=== PATIENT | female | born 1960 | race Caucasian/White ===

== ENCOUNTER → 2024-04-29 08:45 | Outpatient (AMB) | payer BC, SELFPAY ==
--- NOTE | 2024-04-29 08:46 | A.OFFVIS_ITS ---
Vital Signs 04/29/24 08:46 Height 5 ft 2 in Weight 169 lb 8.568 oz BMI 31.0 BP 154/88 H Blood Pressure Location Rt brachial Position Sitting Pulse 84 Pulse Source Pulse Oximeter Pulse Oximetry (%) 98 Oxygen Delivery Method Room Air Intake Visit Reasons: T2DM/Left vm Intake Note: Patient present today for Type 2 Diabetes Mellitus Last Diabetic eye exam: 02/2024 Last Podiatry Visit: Doesn't have one Random Glucose: 179 mg/dl HgA1C: 7.9% Research Lab Assistant Required: No Accompanied by: Self / Same As Patient Allergies No Known Allergies Allergy (Verified 04/29/24 08:51) Medication List - Last Reconciled 04/29/24 by Mervat Chiu PA-C hydrochlorothiazide 25 mg PO DAILY irbesartan 150 mg PO DAILY metformin 1,000 mg PO DAILY rosuvastatin 10 mg PO DAILY semaglutide (Ozempic) 1 mg subcut QWEEK HPI HPI T2DM/Left vm: Details: Patient is a 64-year-old female with a significant past medical history of hypertension, hyperlipidemia and type 2 diabetes presenting today for an initial consult regarding diabetes. Endo: She was diagnosed with diabetes around 2019. Her last A1c was 8.3 at her primary care's office in 7.9 today. She is currently on metformin 1000 mg twice a day and Ozempic 1 mg weekly. -She states that she was recently increased on the metformin and is tolerating this okay. She struggles tolerating the Ozempic. It causes a lot of nausea and upset stomach. She could not tolerate a higher dose of this. She does not even like the idea of taking this. She has been on it for about 2 years and has not noticed any weight loss with this drug. She states that she tried a different drug as well but it made her feel sick and she can not recall the name. This was prior to starting the Ozempic. She says that this is her 1st appointment in endocrinology. She has never had any diabetic Education. She does not check her blood sugars are have any testing supplies at home. She has a family history of type 1 and type 2 diabetes. She states that she is very active and does not know why she has a problem with diabetes. She thinks that she eats a lot of the right foods but does eat a lot of carbohydrates. States that she could do better. CV: Blood pressure today in the office is 154/88. States blood pressure is little elevated today because she is stressed coming here. She is currently on hydrochlorothiazide 25 mg daily, irbesartan 150 mg daily. Cholesterol is controlled with Crestor 10 mg nightly. [facility] Family History (Updated 04/29/24 @ 08:54 by JACOBO Stewart) Mother Diabetes Father Diabetes Bladder cancer Social History Alcohol intake: current Alcohol intake frequency: holidays/special occasions only Patient Tobacco Use Status: Never used Tobacco Physical Exam Vital Signs: Last Vital Signs Pulse 84 04/29/24 08:46 BP 154/88 H 04/29/24 08:46 Pulse Ox 98 04/29/24 08:46 Oxygen Delivery Method Room Air 04/29/24 08:46 BMI result Body Mass Index 31.0 Const Orientation/consciousness: patient oriented x3 Neck Neck: Yes no lymphadenopathy Thyroid: Thyroid normal Carotids: no bruits Resp Auscultation: clear to auscultation bilaterally Cardio Rate: regular rate Rhythm: regular rhythm Heart sounds: S1 normal heart sound present and S2 normal heart sound present Peripheral pulses: dorsalis pedis present Neuro General: patient oriented x3, gait normal and no focal motor deficits Extrem Other: Monofilament sensation intact bilaterally. Vibratory sensation intact bilaterally. Skin intact. General: Yes normal to inspection Results AMB Hemoglobin A1c AMB Hemoglobin A1c 7.9 % Last Edit by JACOBO Stewart on 04/29/24 10:07 Results Reviewed Results Reviewed: Laboratory Last Values Glucose (Clinic) 179 mg/dL (60-115) H 04/29/24 08:56 A1c today is 7.9. Assessment & Plan Assessment & Plan (1) Uncontrolled type 2 diabetes mellitus with hyperglycemia: Code(s): E11.65 - Type 2 diabetes mellitus with hyperglycemia Category: Medical Plan: 75 minutes was spent in [id number] time today discussing the pathophysiology of diabetes, differences between type 1 and type 2 diabetes, complications associated with diabetes including blindness, heart disease, kidney disease, increased risk of infection, amputations etc.. We also reviewed signs and symptoms of hyper and hypoglycemia that would require emergent medical treatment. Reviewed rule of 15 of how to treat low blood sugars. We will stop the Ozempic and switch to Mounjaro as she does not tolerate Ozempic. Possibly tried Trulicity in the past with similar symptoms. We reviewed risks and benefits and adverse effects of the Mounjaro including increased risk of nausea, vomiting pancreatitis etc.. Continue the increased dosage of the metformin as she is tolerating this. We reviewed diet at length and increasing protein and exercise. I did provide her with a freestyle Shankar 3 sensor and applied it to her arm today. Demonstrated how this works. Download of the stephy for her on her phone and paired it for her. She would like to see how food directly impact her and is willing to pay for this out of pocket. I did order this at [employer] for her. She will call me if any issues. One-month follow up. Sooner if needed. Labs prior. Patient understands and agrees with this plan. (2) HTN (hypertension): Code(s): I10 - Essential (primary) hypertension Category: Medical Plan: A little elevated above goal today. (3) Dyslipidemia: Code(s): E78.5 - Hyperlipidemia, unspecified Category: Medical Plan: She states that it is well-controlled. Continue current regimen. Orders: Orders Islet Cell Antibody Scrn/Titer Today E11.65 - Type 2 diabetes mellitus with hyperglycemia C Peptide Today E11.65 - Type 2 diabetes mellitus with hyperglycemia Glutamic acid decarboxylase Ab Today E11.65 - Type 2 diabetes mellitus with hyperglycemia AMB Hemoglobin A1c Today E11.65 - Type 2 diabetes mellitus with hyperglycemia, Z13.9 - Encounter for screening, unspecified Medications: New blood-glucose meter (FreeStyle Lite Meter kit) Use daily As directed to check blood sugars 1 ea 0RF E11.65 - Type 2 diabetes mellitus with hyperglycemia blood-glucose sensor (FreeStyle Shankar 3 Plus Sensor device) Use daily As directed to monitor glucose 2 ea 5RF E11.65 - Type 2 diabetes mellitus with hyperglycemia tirzepatide (Mounjaro) for 4 weeks 2.5 mg (0.5 mL) subcut QWEEK 2 mL 2RF metformin 1,000 mg PO BID blood sugar diagnostic (FreeStyle Lite Strips) Use daily As directed to check blood glucose 100 ea 3RF E11.9 - Type 2 diabetes mellitus without complications lancets (FreeStyle Lancets) use daily as directed to check blood glucose 100 ea 3RF E11.65 - Type 2 diabetes mellitus with hyperglycemia blood-glucose sensor (FreeStyle Shankar 3 Plus Sensor device) Use daily As directed to monitor glucose 2 ea 5RF E11.65 - Type 2 diabetes mellitus with hyperglycemia Coding Level of Care Code New Pt Level 5 (29011) Complex EM visit Add On G2211 Diagnoses Uncontrolled type 2 diabetes mellitus with hyperglycemia E11.65 HTN (hypertension) I10 Dyslipidemia E78.5
[2024-04-29 09:00] LABS: Glucose, Whole Blood 179 mg/dL (60-115)
--- OUTSIDE RECORDS SUMMARY | 2024-04-29 09:05 | XMS_ITS | Encounter Summary ---
Author Organization [facility] Address [address] [place] [id number] Care Team Providers Care Air Bag Stripper Name Role Phone Unavailable Primary Care Provider Unavailabl e Encounter Details Date Type Department Care Team (Latest Contact Info) Description 03/31/2020 Lab Requisition [facility] [address] [place] [address] [address] [place] [address] Felipe Scott PA-C [address] [place] [address] [phone] Encounter for laboratory testing for COVID-19 virus Social History Tobacco Use Types Packs/Day Years Used Date Smoking Tobacco: Never Assessed Sex and Gender Information Value Date Recorded Sex Assigned at Not on file Gender Identity Not on file Sexual Orientation Not on file documented as of this encounter Plan of Treatment Not on file documented as of this encounter Procedures Procedure Name Priority Date/Time Associated Diagnosis Comments COVID-19 (SARS-COV-2) - [facility] Routine 03/31/2020 4:12 PM EST Encounter for laboratory testing for COVID-19 virus [ICD-10-CM] documented in this encounter Results * COVID-19 (SARS-COV-2) (SEMA4) (03/31/2020 4:12 PM EST) COVID-19 RT-PCR NOT-DETEC AMBAR Not-Detec ambar 04/02/2020 5:31 PM EST [facility] Comment:Interpretation: The viral RNA was not detected, making the COVID-19 diagnosis less likely. Clinical correlation is highly recommended.Final report signed by Aleah Pierson, Ph.D., Laboratory DirectorTests performed at [facility] Nasopharyngeal swab / Unknown 03/31/2020 4:12 PM EST 03/31/2020 4:12 PM EST Narrative ERNA DELGADOMARLY - 04/02/2020 5:31 PM EST Performed by [facility], [facility] [address] [place] [address], CLIA# [id number] and [place] License# [id number] Felipe Scott PA-C MICROBIOLOGY - NERAL ORDERABLES ERNA GAYATRI Ari PALLAVI documented in this encounter Visit Diagnoses Diagnosis Encounter for laboratory testing for COVID-19 virus documented in this encounter
--- OUTSIDE RECORDS SUMMARY | 2024-04-29 09:05 | XMS_ITS | Clinical Summary ---
Author Organization [facility] Address [address] [place] [address] Care Team Providers Care Photographic Press Screwmaker Name Role Phone Unavailable Primary Care Provider Unavailabl e Social History Tobacco Use Types Packs/Day Years Used Date Smoking Tobacco: Never Assessed Sex and Gender Information Value Date Recorded Sex Assigned at Not on file Gender Identity Not on file Sexual Orientation Not on file Plan of Treatment Health Maintenance Due Date Last Done Comments Hepatitis C Virus Screening 1960 HIV Screening 1974 DTaP/Tdap/Td Vaccines (1 - Tdap) 02/01/1980 Pneumococcal Vaccines 50+ (1 of 1 - PCV) 2011 Zoster (Shingles) Vaccine (1 of 2) 2011 COVID-19 Vaccine ( - 2023-2 5 season) 2023 RSV Vaccine 60 years and old er and Patients (1 - 1-dose 75+ series) 02/01/2036 Hepatitis B Vaccines Aged Out No long er eligible based on patient's age to complete this topic Pneumococcal Vaccine: Pediat td (0-5 Years) and At-Risk Patients (6 to 49 Years) Aged Out No longer eligible b ased on patient's age to complete this topic
== END | disposition home or self-care (01) ==
PROVIDERS: PCP Internal Medicine; Visit Provider Physician Assistant

== ENCOUNTER → 2024-04-29 08:45 | Outpatient (BNVA) | payer BC, SELFPAY | PROVIDERS: PCP Internal Medicine; Visit Provider Physician Assistant | DX: E11.65 Type 2 diabetes mellitus with hyperglycemia (principal); I10 Essential (primary) hypertension; E78.5 Hyperlipidemia, unspecified | CPT/HCPCS: 82947; 83036 ==

== ENCOUNTER 2024-05-27 08:48 | Outpatient (AMB) | payer BC, SELFPAY ==
--- NOTE | 2024-05-27 08:55 | A.OFFVIS_ITS ---
Vital Signs 05/27/24 08:57 Height 5 ft 2 in Weight 159 lb 9.835 oz BMI 29.2 BP 126/86 Blood Pressure Location Rt brachial Position Sitting Pulse 88 Pulse Source Pulse Oximeter Pulse Oximetry (%) 99 Oxygen Delivery Method Room Air Intake Visit Reasons: T2DM Intake Note: Patient present today for Type 2 Diabetes Mellitus Last Diabetic eye exam: Within the year, around September or October 2023. Last Podiatry Visit: Does not see a Patient Accounts Coordinator Random Glucose: 121 mg/dl HgA1C: 7.9% 04/29/24 Charter [employer] Required: No Accompanied by: Self / Same As Patient Allergies No Known Allergies Allergy (Verified 05/27/24 08:59) Medication List - Last Reconciled 05/27/24 by Mervat Chiu PA-C blood sugar diagnostic (FreeStyle Lite Strips) Use daily As directed to check blood glucose blood-glucose meter (FreeStyle Lite Meter kit) Use daily As directed to check blood sugars blood-glucose sensor (FreeStyle Shankar 3 Plus Sensor device) Use daily As directed to monitor glucose hydrochlorothiazide 25 mg PO DAILY irbesartan 150 mg PO DAILY lancets (FreeStyle Lancets) use daily as directed to check blood glucose metformin 1,000 mg PO ONCE rosuvastatin 10 mg PO DAILY tirzepatide (Mounjaro) 2.5 mg (0.5 mL) subcut QWEEK HPI HPI T2DM: Details: Patient is a 64-year-old female with a significant past medical history of hypertension, hyperlipidemia and type 2 diabetes presenting today for a follow up regarding her diabetes. Endo: She was diagnosed with diabetes around 2019. Her last A1c was 8.3 at her primary care's office in 7.9 today. She is currently on metformin 1000 mg twice a day and Mounjaro 2.5 mg. At our last visit I discontinued the Ozempic due to GI upset. She states she actually has not started the Mounjaro and has continue the Ozempic but plans to start Mounjaro this weekend. Since starting the sensors she has lost 10 lb. She states that it is very encouraging seeing how her body reactive certain foods. Hypergylcemic 6% in range 94%. G mi 6.4% -She states that she was recently increased on the metformin and is tolerating this okay. -Ozempic causes GI upset, Trulicity causes GI upset. At our last visit I also sent her in testing supplies. She has been monitoring her blood sugars. She has a family history of type 1 and type 2 diabetes. CV: Blood pressure today in the office is 126/86. She is currently on hydrochlorothiazide 25 mg daily, irbesartan 150 mg daily. Cholesterol is controlled with Crestor 10 mg nightly. [facility] Surgical History (Updated 05/27/24 @ 08:59 by JACOBO Adler) No pertinent past surgical history Family History (Updated 04/29/24 @ 08:55 by JACOBO Stewart) Mother Diabetes Father Diabetes Bladder cancer Social History (Updated 04/29/24 @ 08:55 by JACOBO Stewart) Alcohol intake: current Alcohol intake frequency: holidays/special occasions only Patient Tobacco Use Status: Never used Tobacco Physical Exam Const Orientation/consciousness: patient oriented x3 HEENT Ears: hearing grossly normal bilaterally Neck Thyroid: Thyroid normal Lymphatic: no lymphadenopathy noted Resp Auscultation: clear to auscultation bilaterally Cardio Rate: regular rate Rhythm: regular rhythm Heart sounds: S1 normal heart sound present and S2 normal heart sound present Skin General skin exam: no rashes or lesions noted Neuro General: patient oriented x3, gait normal and no focal motor deficits Results Reviewed Results Reviewed: Laboratory Tests 04/29/24 04/29/24 08:56 10:06 Glucose (Clinic) 179 H Hgb A1c (Clinic) 7.9 H Assessment & Plan Assessment & Plan (1) Uncontrolled type 2 diabetes mellitus with hyperglycemia: Code(s): E11.65 - Type 2 diabetes mellitus with hyperglycemia Category: Medical Plan: start mounjaro reduce metformin to 1000 mg daily follow up in 3 months or sooner prn (2) HTN (hypertension): Code(s): I10 - Essential (primary) hypertension Category: Medical Plan: wnl continue current plan (3) Dyslipidemia: Code(s): E78.5 - Hyperlipidemia, unspecified Category: Medical Plan: Continue Crestor. States her last lipids were at goal. Coding Level of Care Code Est Pt Level 4 (60168) Complex EM visit Add On G2211 Diagnoses Uncontrolled type 2 diabetes mellitus with hyperglycemia E11.65 HTN (hypertension) I10 Dyslipidemia E78.5
[2024-05-27 08:57] VITALS: BP 126/86; PULSE 88; O2SAT 99; BMI 29.2
[2024-05-27 09:07] LABS: Glucose, Whole Blood 121 mg/dL (60-115)
--- OUTSIDE RECORDS SUMMARY | 2024-05-27 09:21 | XMS_ITS | Clinical Summary ---
Author Organization [facility] Address [address] [place] [address] Care Team Providers Care Wireless Engineer Name Role Phone Unavailable Primary Care Provider [...]
--- OUTSIDE RECORDS SUMMARY | 2024-05-27 09:22 | XMS_ITS | Encounter Summary ---
Author Organization [facility] Address [address] [place] [address] Care Team Providers Care Petroleum Engineer Name Role Phone Ysabel Thompson MD Primary Care Provider [phone] Encounter Details Date Type Department Care Team (Late st Contact Info) Description 05/03/2024 Telephone Gastroenterology - [address] [place] [id number] Dina Clements MD [address] [place], [place] [phone] Social History Tobacco Use Types Packs/Day Years Used Date Smoking Tobacco: Never Assessed Comments Unknown Sex and Gender Information Value Date Recorded Sex Assigned at Not on file Legal Sex Female 2:15 PM EST Gender Identity Not on file Sexual Orientation Not on file documented as of this encounter Progress Notes * Ellen Johns - 05/04/2024 10:03 AM EST UPON CHECKING, PT LAST COLON WAS 03/09/2025 5 YEAR RECALL, PT ISNT DUE UNTIL 03/10/2025. RECALL ADDED TO PT'S CHART. IF PT HAS HMO INSURANCE, HE WILL NEED INSURANCE REFERRAL. THIS WAS NOT SENT WITH HIS REFERRAL. * Joanne Weiss MA - 05/03/2024 2:08 PM EST PHONE POD: (IF PT CALLING IN) Blood thinners: n Diabetic meds? n Weight loss meds? n documented in this encounter Plan of Treatment Not on file documented as of this encounter Visit Diagnoses Not on filedocumented in this encounter Care Teams Petroleum Engineer Relationship Specialty Start Date End Date Ysabel Thompson MD [address] [place] [id number] PCP - General Internal Medicine 05/04/24 documented as of this encounter
--- OUTSIDE RECORDS SUMMARY | 2024-05-27 09:22 | XMS_ITS | Clinical Summary ---
Author Organization [facility] [address] [facility] Address [address] [place] [address] Phone Care Team Providers Care Careers Adviser Name Role Phone Femi Thompson MD Primary Care Provider [phone] Encounters Date Type Department Care Team Description 05/03/2024 Telephone Gastroenterology - [address] [address] Dina Clements MD from Last 3 Months Social History Tobacco Use Types Packs/Day Years Used Date Smoking Tobacco: Never Assessed Comments Unknown Sex and Gender Information Value Date Recorded Sex Assigned at Not on file Legal Sex Female 2:15 PM EST Gender Identity Not on file Sexual Orientation Not on file Plan of Treatment Health Maintenance Due Date Last Done Comments DTaP,Tdap,and Td Vaccines (1 - Tdap) 02/01/1980 Cervical Cancer Screening: P ap Smear 1982 Pneumococcal Vaccine: 50+ Years (1 of 1 - PCV) 2011 Zoster Vaccines (1 of 2) 2011 Colorectal Cancer Screening: Colonoscopy 02/19/2022 Depression Screening 02/19/2022 HIV Screening 02/19/2022 Hepatitis C Screening 02/19/2022 Social Influencers of Health Screening 02/19/2022 COVID-19 Vaccine ( - 2023-2 5 season) 2023 Influenza Vaccine (#1) 2023 Breast Cancer Screening 06/27/2024 06/28/19, 12/05/2019 RSV Immunization Patients 60 + Years Old (1 - 1-dose 75+ series) 02/01/2036 HIB Vaccines Aged Out No longer eligi ble based on patient's age to complete this topic HPV Vaccines Aged Out No longer eligi ble based on patient's age to complete this topic Hepatitis A Vaccines Aged Out No long er eligible based on patient's age to complete this topic Hepatitis B Vaccines Aged Out No long er eligible based on patient's age to complete this topic IPV Vaccines Aged Out No longer eligi ble based on patient's age to complete this topic MMR Vaccines Aged Out No longer eligi ble based on patient's age to complete this topic Meningococcal ACWY Vaccine Aged Out N o longer eligible based on patient's age to complete this topic Meningococcal B Vacine Aged Out No lo nger eligible based on patient's age to complete this topic Pneumococcal Vaccine: Pediatrics (0 to 5 Years) and At-Risk Patients (6 to 64 Years) Aged Out No longer eligible b ased on patient's age to complete this topic RSV Immunization Patients Under 20 months Aged Out No longer eligible b ased on patient's age to complete this topic Varicella Vaccines Aged Out No longer eligible based on patient's age to complete this topic Procedures Procedure Name Priority Date/Time Associated Diagnosis Comments [facility] SCREENING DIGITAL Routine 06/27/2022 9:37 AM EDT Encounter for screening mammogram for malignant neoplasm of breast from Last 3 Months or Most Recently Relevant to Health Maintenance Results * [facility] SCREENING DIGITAL (06/27/2022 9:37 AM EDT) Anatomical Region Laterality Modality Mammography 06/25/2022 9:35 AM EDT Narrative 06/27/2022 9:37 AM EDT [facility] Diagnostic Imaging Department [address] [place], [place] [id number] Patient: ??EB,JOSE F ?/Age/Sex: 1960 - 62 - F Unit#: ??[id number] ? Location/Status: ??SPDIMAM/REG CLI ? Mnemonic/Ordering Site: ??DIGSC/SPMAM Ordering Physician: ??FEMI THOMPSON MD [facility] Screening Digital - 06/25/22 - 957 HISTORY: The patient is a 62-year-old female presenting for routine screening mammography. ??The patient underwent stereotactic core biopsy of microcalcifications of the right breast on 03/20/2016, pathology benign. FINDINGS: ??CC and MLO views of both breasts were obtained using full field digital mammography in the [employer] 2000-D unit. Computer aided detection with the iCAD Second Look 7.2-H was employed. In addition, breast tomosynthesis in MLO projection was performed. The breasts are again seen to be largely fatty-replaced (the breasts are almost entirely fatty, category A density, as calculated by [employer] software), as also demonstrated on prior studies most recently 12/02/2019 and most remotely 03/07/2016. ??A tissue marker representing the site of the previous benign biopsy is again seen; the adjacent tissue asymmetry is less prominent than on prior studies. ??There is no suspicious cluster of microcalcifications, mass, or area of architectural distortion. There is no skin thickening or nipple retraction. IMPRESSION: No mammographic evidence of malignancy. A negative mammogram in the presence of a clinically suspicious palpable abnormality does not preclude the possibility of malignancy or alter the indications for biopsy. BIRADS Code Class 2: ??Benign Finding PQRI CPT II 3342F Code 25607, 04893 PQRI 225 CPT II 7025F Dictating Physician: ??NAOMI COX MD Electronically Signed by: ??NAOMI COX MD Dic Date/Time: ??06/27/22932 Sign date/Time: ??06/27/22936 Procedure Note Naomi Cox MD - 04/24/2023 [facility] Diagnostic Imaging Department [address] [place], [place] [id number] Patient: JOSE GUZMAN /Age/Sex: 1960 - 62 - F Unit#: [id number] Location/Status: SPDIMA/REG CLI Mnemonic/Ordering Site: [facility] Ordering Physician: FEMI THOMPSON MD [employer] Screening Digital - 06/25/22957 HISTORY: The patient is a 62-year-old female presenting for routinescreening mammography. The patient underwent stereotactic core biopsy of microcalcifications of the right breast on 03/20/2016, pathology benign. FINDINGS: CC and MLO views of both breasts were obtained using fullfield digital mammography in the [employer] 2000-D unit. Computer aideddetection with the iCAD Second Look 7.2-H was employed. In addition, breasttomosynthesis in MLO projection was performed. The breasts are again seen to be largely fatty-replaced (the breasts arealmost entirely fatty, category A density, as calculated by [employer]), as also demonstrated on prior studies most recently 12/02/2019 and mostremotely 03/07/2016. A tissue marker representing the site of the previous benignbiopsy is again seen; the adjacent tissue asymmetry is less prominent than onprior studies. There is no suspicious cluster of microcalcifications, mass, orarea of architectural distortion. There is no skin thickening or nippleretraction. IMPRESSION: No mammographic evidence of malignancy. A negative mammogram in the presence of a clinically suspicious palpable abnormality does not preclude the possibility of malignancy or alter the indications for biopsy. BIRADS Code Class 2: Benign Finding PQRI CPT II 3342F Code 29423, 17105 PQRI 225 CPT II 7025F Dictating Physician: NAOMI COX MD Electronically Signed by: NAOMI COX MD Dic Date/Time: 06/27/22932 Sign date/Time: 06/27/22936 Femi Thompson MD IMG BI PROCEDURES Final Result from Last 3 Months or Most Recently Relevant to Health Maintenance Insurance [facility] Care Teams Careers Adviser Relationship Specialty Start Date End Date Femi Thompson MD [address] [place] [id number] PCP - General Internal Medicine 05/04/24
--- OUTSIDE RECORDS SUMMARY | 2024-05-27 09:22 | XMS_ITS | Encounter Summary ---
Author Organization [facility] Address [address] [place] [id number] Care Team Providers Care Stave And Bolt Equalizer Name Role Phone Unavailable Primary Care Provider Unavailabl e Encounter Details Date Type Department Care Team (Latest Contact Info) Description 03/31/2020 Lab Requisition [facility] COVID Drive Through [address] [place] [address] [address] [place] [address] Felipe Scott PA-C [address] [place] [address] [id number] Encounter for laboratory testing for COVID-19 virus [...] Date/Time Associated Diagnosis Comments COVID-19 (SARS-COV-2) - [facility] Routine 03/31/2020 4:12 PM EST Encounter for laboratory testing for COVID-19 virus [ICD-10-CM] documented in this encounter Results * COVID-19 (SARS-COV-2) (SEMA4) (03/31/2020 4:12 PM EST) COVID-19 RT-PCR NOT-DETEC AMBAR Not-Detec ambar 04/02/2020 5:31 PM EST [facility] Comment:Interpretation: The viral RNA was not detected, making the COVID-19 diagnosis less likely. Clinical correlation is highly recommended.Final report signed by Aleah Pierson, Ph.D., Laboratory DirectorTests performed at [facility] Nasopharyngeal swab / Unknown 03/31/2020 4:12 PM EST 03/31/2020 4:12 PM EST Narrative ERNA DELGADOMARLY - 04/02/2020 5:31 PM EST Performed by [employer], [employer] [address] [place] [address], CLIA# [id number] and [place] License# [id number] Felipe Scott PA-C MICROBIOLOGY - NERAL ORDERABLES ERNA GAYATRI Ari PALLAVI documented in this encounter Visit Diagnoses Diagnosis Encounter for laboratory testing for COVID-19 virus documented in this encounter
== END 2024-05-27 09:32 | disposition home or self-care (01) ==
PROVIDERS: PCP Internal Medicine; Visit Provider Physician Assistant
DX: E11.65 Type 2 diabetes mellitus with hyperglycemia (principal); I10 Essential (primary) hypertension; E78.5 Hyperlipidemia, unspecified

== ENCOUNTER → 2024-05-27 08:48 | Outpatient (BNVA) | payer BC, SELFPAY | PROVIDERS: PCP Internal Medicine; Visit Provider Physician Assistant | DX: E11.65 Type 2 diabetes mellitus with hyperglycemia (principal); I10 Essential (primary) hypertension; E78.5 Hyperlipidemia, unspecified; Z79.84 Long term (current) use of oral hypoglycemic drugs; Z79.899 Other long term (current) drug therapy | CPT/HCPCS: 82947 ==

== ENCOUNTER 2024-09-02 08:45 | Outpatient (AMB) | payer BC, SELFPAY ==
[2024-09-02 08:47] VITALS: BP 120/80; PULSE 69; O2SAT 98; BMI 26.4
--- NOTE | 2024-09-02 08:47 | A.OFFVIS_ITS ---
Vital Signs 09/02/24 08:47 Height 5 ft 2 in Weight 144 lb 9.972 oz BMI 26.4 BP 120/80 Blood Pressure Location Rt brachial Position Sitting Pulse 69 Pulse Source Pulse Oximeter Pulse Oximetry (%) 98 Oxygen Delivery Method Room Air Intake Visit Reasons: T2DM Intake Note: Patient present today for Type 2 Diabetes Mellitus Last Diabetic eye exam: 01/2025 Last Podiatry Visit: Doesn't have one Random Glucose: 116 mg/dl HgA1C: 7.3% Line Service Technician Required: No Accompanied by: Self / Same As Patient Allergies No Known Allergies Allergy (Verified 09/02/24 09:10) Medication List - Last Reconciled 09/02/24 by Mervat Chiu PA-C blood sugar diagnostic (FreeStyle Lite Strips) Use daily As directed to check blood glucose blood-glucose meter (FreeStyle Lite Meter kit) Use daily As directed to check blood sugars blood-glucose sensor (FreeStyle Shankar 3 Plus Sensor device) Use daily As directed to monitor glucose hydrochlorothiazide 25 mg PO DAILY irbesartan 150 mg PO DAILY lancets (FreeStyle Lancets) use daily as directed to check blood glucose metformin 1,000 mg PO ONCE rosuvastatin 10 mg PO DAILY tirzepatide (Mounjaro) 2.5 mg (0.5 mL) subcut QWEEK HPI HPI T2DM: Details: Patient is a 64-year-old female with a significant past medical history of hypertension, hyperlipidemia and type 2 diabetes presenting today for a follow up regarding her diabetes. Endo: She was diagnosed with diabetes around 2019. Her last A1c at her primary care's office in 6.6 today. She is currently on metformin 1000 mg once a day and Mounjaro 2.5 mg. -she has lost 15 lb in 3 months. Hypergylcemic 6% in range 94%. G mi 6.4% -She states that she was recently increased on the metformin and is tolerating this okay. -Ozempic causes GI upset, Trulicity causes GI upset. At our last visit I also sent her in testing supplies. She has been monitoring her blood sugars. She has a family history of type 1 and type 2 diabetes. CV: Blood pressure today in the office is 120/80. She is currently on hydrochlorothiazide 25 mg daily, irbesartan 150 mg daily. Cholesterol is controlled with Crestor 10 mg nightly. [facility] Surgical History No pertinent past surgical history Family History Mother Diabetes Father Diabetes Bladder cancer Social History Alcohol intake: current Alcohol intake frequency: holidays/special occasions only Patient Tobacco Use Status: Never used Tobacco Physical Exam Vital Signs: Last Vital Signs Pulse 69 09/02/24 08:47 BP 120/80 09/02/24 08:47 Pulse Ox 98 09/02/24 08:47 Oxygen Delivery Method Room Air 09/02/24 08:47 BMI result Body Mass Index 26.4 Const Orientation/consciousness: patient oriented x3 Neck Neck: Yes no lymphadenopathy Thyroid: Thyroid normal Carotids: no bruits Resp Auscultation: clear to auscultation bilaterally Cardio Rate: regular rate Rhythm: regular rhythm Heart sounds: S1 normal heart sound present and S2 normal heart sound present Peripheral pulses: dorsalis pedis present Neuro General: patient oriented x3, gait normal and no focal motor deficits Extrem Other: Monofilament sensation intact bilaterally. Vibratory sensation intact bilaterally. Skin intact. General: Yes normal to inspection Results AMB Hemoglobin A1c AMB Hemoglobin A1c 7.3 % Last Edit by JACOBO Stewart on 09/02/24 09:33 Results Reviewed Results Reviewed: Laboratory Last Values Glucose (Clinic) 116 mg/dL (60-115) H 09/02/24 09:12 Assessment & Plan Assessment & Plan (1) Uncontrolled type 2 diabetes mellitus with hyperglycemia: Code(s): E11.65 - Type 2 diabetes mellitus with hyperglycemia Category: Medical Plan: Increase Mounjaro 2 5 mg weekly. Discontinue metformin completely. She will let me know how her blood sugars go. (2) HTN (hypertension): Code(s): I10 - Essential (primary) hypertension Category: Medical Plan: WNL. Continue current regimen (3) Dyslipidemia: Code(s): E78.5 - Hyperlipidemia, unspecified Category: Medical Plan: Continue current regimen. Monitored by PCP. Orders: Orders AMB Hemoglobin A1c Today E11.65 - Type 2 diabetes mellitus with hyperglycemia, Z13.9 - Encounter for screening, unspecified Medications: New tirzepatide (Mounjaro) 5 mg (0.5 mL) subcut QWEEK 2 mL 5RF Discontinued tirzepatide (Mounjaro) for 4 weeks Discontinued Reason: Doctor's Order 2.5 mg (0.5 mL) subcut QWEEK 2 mL 0RF Coding Level of Care Code Est Pt Level 4 (97133) Complex EM visit Add On G2211 Diagnoses Uncontrolled type 2 diabetes mellitus with hyperglycemia E11.65 HTN (hypertension) I10 Dyslipidemia E78.5
--- OUTSIDE RECORDS SUMMARY | 2024-09-02 08:59 | XMS_ITS | Clinical Summary ---
Author Organization [facility] Address [address] [place] [address] Care Team Providers Care Heavy Mobile Equipment Operator Name Role Phone Unavailable Primary Care Provider Unavailabl e Social History Tobacco Use Types Packs/Day Years Used Date Smoking Tobacco: Never Assessed Comments Unknown Sex and Gender Information Value Date Recorded Sex Assigned at Not on file Legal Sex Female 4:10 PM EST Gender Identity Not on file [...]
[2024-09-02 09:16] LABS: Glucose, Whole Blood 116 mg/dL (60-115)
== END 2024-09-02 09:29 | disposition home or self-care (01) ==
LOC: HO.ENCR 08:46
PROVIDERS: PCP Internal Medicine; Visit Provider Physician Assistant
DX: E11.65 Type 2 diabetes mellitus with hyperglycemia (principal); I10 Essential (primary) hypertension; E78.5 Hyperlipidemia, unspecified; Z13.9 Encounter for screening, unspecified

== ENCOUNTER → 2024-09-02 08:45 | Outpatient (BNVA) | payer BC, SELFPAY | PROVIDERS: PCP Internal Medicine; Visit Provider Physician Assistant | DX: E11.65 Type 2 diabetes mellitus with hyperglycemia (principal); E78.5 Hyperlipidemia, unspecified; I10 Essential (primary) hypertension | CPT/HCPCS: 82947; 83036 ==

== ENCOUNTER 2024-12-09 08:48 | Outpatient (AMB) | payer BC, SELFPAY ==
[2024-12-09 08:50] VITALS: BP 122/86; PULSE 80; O2SAT 99; BMI 26.4
--- NOTE | 2024-12-09 08:50 | MHC.OFFVIS ---
Vital Signs 12/09/24 08:50 Height 5 ft 2 in Weight 144 lb 9.972 oz BMI 26.4 BP 122/86 Blood Pressure Location Rt brachial Pulse 80 Pulse Source Pulse Oximeter Pulse Oximetry (%) 99 Oxygen Delivery Method Room Air Intake Visit Reasons: type 2 dm Intake Note: Patient present today for Type 2 Diabetes Mellitus Last Diabetic eye exam: Last exam was within the year, she's unsure of the exact month. Last Podiatry Visit: Doesn't have one Random Glucose: 103 mg/dl HgA1C: 7.1% Unit Aid Required: No Accompanied by: Self / Same As Patient Allergies No Known Allergies Allergy (Verified 12/09/24 08:56) HPI HPI type 2 dm: Details: Patient is a 64-year-old female with a significant past medical history of hypertension, hyperlipidemia and type 2 diabetes presenting today for a follow up regarding her diabetes. Endo: She was diagnosed with diabetes around 2019. Her last A1c today is 7.1. She is currently on mounjaro 5 mg weekly -she has lost 15 lb in 3 months. cgm- unable to wear the last month. States that made her a1c go up because it kept her less honest with diet. -She states that she was recently increased on the metformin and is tolerating this okay. -Ozempic causes GI upset, Trulicity causes GI upset. At our last visit I also sent her in testing supplies. She has been monitoring her blood sugars. She has a family history of type 1 and type 2 diabetes. CV: Blood pressure today in the office is 120/86. She is currently on hydrochlorothiazide 25 mg daily, irbesartan 150 mg daily. Cholesterol is controlled with Crestor 10 mg nightly. [facility] Surgical History No pertinent past surgical history Family History Mother Diabetes Father Diabetes Bladder cancer Social History Alcohol intake: current Alcohol intake frequency: holidays/special occasions only Patient Tobacco Use Status: Never used Tobacco Physical Exam Vital Signs: Last Vital Signs Pulse 80 12/09/24 08:50 BP 122/86 12/09/24 08:50 Pulse Ox 99 12/09/24 08:50 Oxygen Delivery Method Room Air 12/09/24 08:50 BMI result Body Mass Index 26.4 Const Orientation/consciousness: patient oriented x3 Neck Neck: Yes no lymphadenopathy Thyroid: Thyroid normal Carotids: no bruits Resp Auscultation: clear to auscultation bilaterally Cardio Rate: regular rate Rhythm: regular rhythm Heart sounds: S1 normal heart sound present and S2 normal heart sound present Peripheral pulses: dorsalis pedis present Neuro General: patient oriented x3, gait normal and no focal motor deficits Extrem Other: Monofilament sensation intact bilaterally. Vibratory sensation intact bilaterally. Skin intact. General: Yes normal to inspection Results AMB Hemoglobin A1c AMB Hemoglobin A1c 7.1 % Last Edit by JACOBO Stewart on 12/09/24 09:09 Results Reviewed Results Reviewed: Laboratory Last Values Glucose (Clinic) 103 mg/dL (60-115) 12/09/24 08:58 Hgb A1c (Clinic) 7.1 % (4.0-6.0) H 12/09/24 09:00 Assessment & Plan Assessment & Plan (1) Uncontrolled type 2 diabetes mellitus with hyperglycemia: Code(s): E11.65 - Type 2 diabetes mellitus with hyperglycemia Category: Medical Plan: continue current plan- does not wish to increase mounjaro. we did agree if a1c does not go down she will up dosage. return in 3 months or sooner if needed (2) HTN (hypertension): Code(s): I10 - Essential (primary) hypertension Category: Medical Plan: wnl continue current plan Orders: Orders AMB Hemoglobin A1c Today E11.65 - Type 2 diabetes mellitus with hyperglycemia, Z13.9 - Encounter for screening, unspecified Coding Level of Care Code Est Pt Level 4 (56627) Complex EM visit Add On G2211 Diagnoses Uncontrolled type 2 diabetes mellitus with hyperglycemia E11.65 HTN (hypertension) I10
[2024-12-09 09:02] LABS: Glucose, Whole Blood 103 mg/dL (60-115)
--- OUTSIDE RECORDS SUMMARY | 2024-12-09 09:29 | XMS_ITS | Clinical Summary ---
Author Organization [facility] [address] [facility] Address [address] [place] [address] Phone Care Team Providers Care Bottle Washer Machine Name Role Phone Ysabel Thompson MD Primary Care Provider [phone] Surgical History Surgery Date Site/Laterality Comments STEREOTACTIC CORE BIOPSY Right Social History Tobacco Use Types Packs/Day Years Used Date Smoking Tobacco: Never Assessed Comments No Sex and Gender Information Value Date Recorded Sex Assigned at Not on file Legal Sex Female 2:15 PM EST Gender Identity Not on file Sexual Orientation Not on file Obstetrics History Para Term AB IAB SAB Ectopic Multiple Livin g Live Births 1 Last Filed Vital Signs Vital Sign Reading Time Taken Comments Blood Pressure - - Pulse - - Temperature - - Respiratory Rate - - Oxygen Saturation - - Inhaled Oxygen Concentration - - Weight 67.6 kg (149 lb) 07/29/2024 7:23 AM EDT Height 157.5 cm (5' 2 ) 07/29/2024 7:23 AM EDT Body Mass Index 27.25 07/29/2024 7:23 AM EDT Plan of Treatment Health Maintenance Due Date Last Done Comments Cervical Cancer Screening: Pap Smear 1982 Pneumococcal Vaccine: 50+ Years (1 of 1 - PCV) 2011 Zoster Vaccines (1 of 2) 2011 Colorectal Cancer Screening: Colonoscopy 02/19/2022 HIV Screening 02/19/2022 Hepatitis C Screening 02/19/2022 Social Influencers of Health Screening 02/19/2022 Depression Screening 03/23/2024 COVID-19 Vaccine ( season) 2024 03/06/2021, 07/16/2020 Influenza Vaccine (#1) 2024 , 12/04/2022, 12/27/2021, Additional history exists Breast Cancer Screening 07/29/2026 07/30/19 25, 06/27/2022, 12/05/2019 DTaP,Tdap,and Td Vaccines (2 - Td or Tdap) 05/13/2027 05/13/2017 RSV Immunization Adult Patients (1 - 1-dose 75+ series) 02/01/2036 Hepatitis A Vaccines Aged Out 05/10/2017 No long er eligible based on patient's age to complete this topic HIB Vaccines Aged Out No longer eligi [...] age to complete this topic Meningococcal B Vaccine Aged Out No l onger eligible based on patient's age to complete this topic RSV Immunization Patients Under 20 months Aged Out No longer eligible based on patient's age to complete this topic Varicella Vaccines Aged Out No longer eligible based on patient's age to complete this topic Procedures Procedure Name Priority Date/Time Associated Diagnosis Comments MG MAMMO DIGITAL SCREENING W CASH BILAT Routine 07/29/2024 7:37 AM EDT Encounter for screening mammogram for breast cancer from Last 3 Months or Most Recently Relevant to Health Maintenance Results * MG Mammo Digital Screening w Cash bilat (07/29/2024 7:37 AM EDT) Anatomical Region Laterality Modality Breast Bilateral Mammography 07/29/2024 7:42 AM EDT Impressions 07/29/2024 7:46 AM EDT No mammographic evidence of malignancy. A negative mammogram in the presence of a clinically suspicious palpable abnormality does not preclude the possibility of malignancy or alter the indications for biopsy. PQRI CPT II 3342F Code 66391, 55886 PQRI 225 CPT II 7025F TISSUE DENSITY: The breasts are almost entirely fatty. (BI-RADS Category A) IMPRESSION: Benign. BI-RADS CATEGORY: 2 - BENIGN RECOMMENDATION: Screening bilateral mammogram is recommended in 1 year. Mammo Location: [facility], [address] [place] [id number] -------- FINAL REPORT -------- Dictated By: Driss Cox Dictated Date: 07/29/2024 07:42 ET Assigned Physician: Driss Cox Reviewed and Electronically Signed By: Driss Cox Signed Date: 07/29/2024 07:46 ET Workstation ID: [id number] Transcribed By: Self Edit Transcribed Date: 07/29/2024 07:42 ET Narrative 07/29/2024 7:46 AM EDT CLINICAL: The patient is a 64 years Female presenting for routine screening mammography. The patient underwent stereotactic core biopsy of microcalcifications in the right breast on 03/20/2016, pathology benign. COMPARISON: 06/25/2022, 12/02/2019, and 03/13/2017. TECHNIQUE: Full-field digital mammography of the breasts bilaterally consisting of tomosynthesis in MLO and CC projection is performed in the OLED-T 2000-D unit. Computer aided detection utilizing the [employer] system was utilized. FINDINGS: The breasts are again seen to be largely fatty replaced. A tissue marker from the previous benign biopsy is again seen in the nipple line in the right breast. There is no suspicious cluster of microcalcifications, mass, or area of architectural distortion. There is no skin thickening or nipple retraction. Procedure Note Driss oCx MD - 07/29/2024 CLINICAL: The patient is a 64 years Female presenting for routinescreening mammography. The patient underwent stereotactic core biopsy ofmicrocalcifications in the right breast on 03/20/2016, pathology benign. COMPARISON: 06/25/2022, 12/02/2019, and 03/13/2017. TECHNIQUE: Full-field digital mammography of the breasts bilaterallyconsisting of tomosynthesis in MLO and CC projection is performed in theOLED-T 2000-D unit. Computer aided detection utilizing the [employer] was utilized. FINDINGS: The breasts are again seen to be largely fatty replaced. Atissue marker from the previous benign biopsy is again seen in the nippleline in the right breast. There is no suspicious cluster ofmicrocalcifications, mass, or area of architectural distortion. There isno skin thickening or nipple retraction. IMPRESSION: No mammographic evidence of malignancy. A negative mammogram in the presence of a clinically suspicious palpableabnormality does not preclude the possibility of malignancy or alter theindications for biopsy. PQRI CPT II 3342F Code 19880, 27713 PQRI 225 CPT II 7025F TISSUE DENSITY: The breasts are almost entirely fatty. (BI-RADS CategoryA) IMPRESSION: Benign. BI-RADS CATEGORY: 2 - BENIGN RECOMMENDATION: Screening bilateral mammogram is recommended in 1 year. Mammo Location: [facility], [address] [place] [address] -------- FINAL REPORT -------- Dictated By: Driss Cox Dictated Date: 07/29/2024 07:42 ET Assigned Physician: Driss Cox Reviewed and Electronically Signed By: Driss Cox Signed Date: 07/29/2024 07:46 ET Workstation ID: [id number] Transcribed By: Self Edit Transcribed Date: 07/29/2024 07:42 ET us Self Referral Sppl IMG BI PROCEDURES Final Resul t from Last 3 Months or Most Recently Relevant to Health Maintenance Insurance [facility] Care Teams Bottle Washer Machine Relationship Specialty Start Date End Date Ysabel Thompson MD [address] [place] [id number] PCP - General Internal Medicine 05/04/24
--- OUTSIDE RECORDS SUMMARY | 2024-12-09 09:29 | XMS_ITS | Clinical Summary ---
Author Organization [facility] Address [address] [place] [address] Care Team Providers Care It Systems Manager Name Role Phone Unavailable Primary Care Provider [...] COVID-19 Vaccine ( - 2023-2 5 season) 2024 RSV Vaccine 60 years and old er and Patients (1 - 1-dose 75+ series) 02/01/2036 Hepatitis B Vaccines Aged Out No long er eligible based on patient's age to complete this topic
--- OUTSIDE RECORDS SUMMARY | 2024-12-09 09:29 | XMS_ITS | Encounter Summary ---
Author Organization [facility] Address [address] [place] [address] Care Team Providers Care Medical Data Analyst Name Role Phone Unavailable Primary Care Provider Unavailabl e Encounter Details Date Type Department Care Team (Latest Contact Info) Description 03/31/2020 Lab Requisition [facility] COVID Drive Through [address] [place] [address] [address] [place] [address] Felipe Scott PA-C [address] [place] [phone] Encounter for laboratory testing for COVID-19 virus [...] Associated Diagnosis Comments COVID-19 (SARS-COV-2) - [facility] Routine 03/31/2020 4:12 PM EST Encounter for laboratory testing for COVID-19 virus [ICD-10-CM] documented in this encounter Results * COVID-19 (SARS-COV-2) (SEMA4) (03/31/2020 4:12 PM EST) COVID-19 RT-PCR NOT-DETEC AMBAR Not-Detec ambar 04/02/2020 5:31 PM EST [facility] Comment:Interpretation: The viral RNA was not detected, making the COVID-19 diagnosis less likely. Clinical correlation is highly recommended.Final report signed by Aleah Pierson, Ph.D., Laboratory DirectorTests performed at [email or web address] Nasopharyngeal swab / Unknown 03/31/2020 4:12 PM EST 03/31/2020 4:12 PM EST Narrative ERNA OLIVO - 04/02/2020 5:31 PM EST Performed by [email or web address] [address] [place] [address], CLIA# [id number] and [place] License# [id number] Felipe Scott PA-C MICROBIOLOGY - GENERAL OR DERABLES Final Result ERNA OLIVO documented in this encounter Visit Diagnoses Diagnosis Encounter for laboratory testing for COVID-19 virus documented in this encounter
== END 2024-12-09 09:27 | disposition home or self-care (01) ==
LOC: HO.ENCR 08:49
PROVIDERS: PCP Internal Medicine; Visit Provider Physician Assistant
DX: E11.65 Type 2 diabetes mellitus with hyperglycemia (principal); I10 Essential (primary) hypertension; Z13.9 Encounter for screening, unspecified

== ENCOUNTER → 2024-12-09 08:48 | Outpatient (BNVA) | payer BC, SELFPAY | PROVIDERS: PCP Internal Medicine; Visit Provider Physician Assistant | DX: E11.65 Type 2 diabetes mellitus with hyperglycemia (principal); I10 Essential (primary) hypertension; E78.5 Hyperlipidemia, unspecified | CPT/HCPCS: 82947; 83036 ==

== ENCOUNTER 2025-03-10 08:50 | Outpatient (AMB) | payer BC, SELFPAY ==
[2025-03-10 08:56] VITALS: BP 140/82; PULSE 79; O2SAT 100; BMI 26.1
--- NOTE | 2025-03-10 08:56 | MHC.OFFVIS ---
Vital Signs 03/10/25 08:56 Height 5 ft 2 in Weight 142 lb 10.225 oz BMI 26.1 BP 140/82 H Blood Pressure Location Rt brachial Position Sitting Pulse 79 Pulse Source Pulse Oximeter Pulse Oximetry (%) 100 Oxygen Delivery Method Room Air Intake Visit Reasons: T2DM Intake Note: Patient present today for Type 2 Diabetes Mellitus Last Diabetic eye exam: Last exam was 03/04/2025 Last Podiatry Visit: Doens't have one Random Glucose: 107 mg/dl HgA1C: 6.9% Mender Hand Required: No Accompanied by: Self / Same As Patient Allergies No Known Allergies Allergy (Verified 03/10/25 09:01) HPI HPI T2DM: Details: Patient is a 65-year-old female with a significant past medical history of hypertension, hyperlipidemia and type 2 diabetes presenting today for a follow up regarding her diabetes. Endo: She was diagnosed with diabetes around 2019. Her last A1c today is 6.9. She is currently on mounjaro 5 mg weekly -did have right upper quadrant abdominal pain after eating a month ago. The pain was on off for about week. She has not yet seen her PCP. Has since resolved and it was triggered she had a glass eggnog and amaretto. Seeing pcp in a couple weeks to review. Last cmp was wnl. -she has lost 17 lb in 3 months. cgm- unable to wear the last month. States that made her a1c go up because it kept her less honest with diet. -She states that she was recently increased on the metformin and is tolerating this okay. -Ozempic causes GI upset, Trulicity causes GI upset. At our last visit I also sent her in testing supplies. She has been monitoring her blood sugars. She has a family history of type 1 and type 2 diabetes. CV: Blood pressure today in the office is 140/82. She is currently on hydrochlorothiazide 25 mg daily, irbesartan 150 mg daily. Cholesterol is controlled with Crestor 10 mg nightly. PFSH Surgical History No pertinent past surgical history Family History Mother Diabetes Father Diabetes Bladder cancer Social History Alcohol intake: current Alcohol intake frequency: holidays/special occasions only Patient Tobacco Use Status: Never used Tobacco Physical Exam Vital Signs: Last Vital Signs Pulse 79 03/10/25 08:56 BP 140/82 H 03/10/25 08:56 Pulse Ox 100 03/10/25 08:56 Oxygen Delivery Method Room Air 03/10/25 08:56 BMI result Body Mass Index 26.1 Const Orientation/consciousness: patient oriented x3 HEENT Ears: hearing grossly normal bilaterally Neck Thyroid: Thyroid normal Lymphatic: no lymphadenopathy noted Resp Auscultation: clear to auscultation bilaterally Cardio Rate: regular rate Rhythm: regular rhythm Heart sounds: S1 normal heart sound present and S2 normal heart sound present Skin General skin exam: no rashes or lesions noted Neuro General: patient oriented x3, gait normal and no focal motor deficits Results AMB Hemoglobin A1c AMB Hemoglobin A1c 6.9 % Last Edit by JACOBO Stewart on 03/10/25 09:14 Assessment & Plan Assessment & Plan (1) Uncontrolled type 2 diabetes mellitus with hyperglycemia: Code(s): E11.65 - Type 2 diabetes mellitus with hyperglycemia Category: Medical Plan: continue current plan return in 3 months or sooner if needed (2) HTN (hypertension): Code(s): I10 - Essential (primary) hypertension Category: Medical Plan: wnl continue current plan Orders: Orders AMB Hemoglobin A1c Today E11.65 - Type 2 diabetes mellitus with hyperglycemia, Z13.9 - Encounter for screening, unspecified Coding Level of Care Code Est Pt Level 4 (72214) Add On Problem Visit Only Diagnoses Uncontrolled type 2 diabetes mellitus with hyperglycemia E11.65 HTN (hypertension) I10
--- OUTSIDE RECORDS SUMMARY | 2025-03-10 09:05 | XMS_ITS | Clinical Summary ---
Author Organization [facility] [address] [facility] [address] [place] [address] Phone Care Team Providers Care Qa Intern Name Role Phone Ysabel Thompson MD Primary Care Provider [phone] Encounters Date Type Department Care Team Description 12/16/2024 Telephone Gastroenterology - [address] [id number] Dina Clements MD from Last 3 Months Surgical History Surgery Date Site/Laterality Comments STEREOTACTIC [...] Health Maintenance Due Date Last Done Comments Colorectal Cancer Screening: Colonoscopy 1961 Cervical Cancer Screening: Pap Smear 1982 Pneumococcal Vaccine: 50+ Years (1 of 1 - PCV) 2011 Zoster Vaccines (1 of 2) 2011 HIV Screening 02/19/2022 Hepatitis C Screening 02/19/2022 Social Influencers of Health Screening 02/19/2022 Depression Screening 03/23/2024 COVID-19 Vaccine ( season) 2024 03/06/2021, 07/16/2020 Influenza Vaccine (#1) 2024 4, 12/04/2022, 12/27/2021, Additional history exists Breast Cancer [...] for biopsy. PQRI CPT II 3342F Code 27960, 75440 PQRI 225 CPT II 7025F TISSUE DENSITY: The breasts are almost entirely fatty. (BI-RADS Category A) IMPRESSION: Benign. BI-RADS CATEGORY: 2 - BENIGN RECOMMENDATION: Screening bilateral mammogram is recommended in 1 year. Mammo Location: [facility], [address] [place] [id number] -------- FINAL REPORT -------- Dictated By: Driss Cox Dictated Date: 07/29/2024 07:42 ET Assigned Physician: Driss Cox Reviewed and Electronically Signed By: Driss Cox Signed Date: 07/29/2024 07:46 ET Workstation ID: [id number] Transcribed By: Self Edit Transcribed Date: 07/29/2024 [...] and CC projection is performed in the Sensulin 2000-D unit. Computer aided detection utilizing the fitkit system was utilized. FINDINGS: The breasts are again seen to be largely fatty replaced. A tissue marker from the previous benign biopsy is again seen in the nipple line in the right breast. There is no suspicious cluster of microcalcifications, mass, or area of architectural distortion. There is no skin thickening or nipple retraction. Procedure Note Driss Cox MD - 07/29/2024 CLINICAL: The patient is a 64 years Female presenting for routinescreening mammography. The patient underwent stereotactic core biopsy ofmicrocalcifications in the right breast on 03/20/2016, pathology benign. COMPARISON: 06/25/2022, 12/02/2019, and 03/13/2017. TECHNIQUE: Full-field digital mammography of the breasts bilaterallyconsisting of tomosynthesis in MLO and CC projection is performed in theGE Senographe 2000-D unit. Computer aided detection utilizing the Recombineystem was utilized. FINDINGS: The breasts are again [...] for biopsy. PQRI CPT II 3342F Code 84444, 42695 PQRI 225 CPT II 7025F TISSUE DENSITY: The breasts are almost entirely fatty. (BI-RADS CategoryA) IMPRESSION: Benign. BI-RADS CATEGORY: 2 - BENIGN RECOMMENDATION: Screening bilateral mammogram is recommended in 1 year. Mammo Location: [facility], [facility], [address] [place] [id number] -------- FINAL REPORT -------- Dictated By: Driss Cox Dictated Date: 07/29/2024 07:42 ET Assigned Physician: Driss Cox Reviewed and Electronically Signed By: Driss Cox Signed Date: 07/29/2024 07:46 ET Workstation ID: [id number] Transcribed By: Self Edit Transcribed Date: 07/29/2024 07:42 ET us Self Referral Sppl IMG BI PROCEDURES Final Resul t from Last 3 Months or Most Recently Relevant to Health Maintenance Insurance [facility] Care Teams Qa Intern Relationship Specialty Start Date End Date Ysabel Thompson MD [address] [place] [phone] PCP - General Internal Medicine 05/04/24
[2025-03-10 09:08] LABS: Glucose, Whole Blood 107 mg/dL (60-115)
== END 2025-03-10 09:31 | disposition home or self-care (01) ==
LOC: HO.ENCR 08:50
PROVIDERS: PCP Internal Medicine; Visit Provider Physician Assistant
DX: E11.65 Type 2 diabetes mellitus with hyperglycemia (principal); I10 Essential (primary) hypertension; Z13.9 Encounter for screening, unspecified

== ENCOUNTER → 2025-03-10 08:50 | Outpatient (BNVA) | payer BC, SELFPAY | PROVIDERS: PCP Internal Medicine; Visit Provider Physician Assistant | DX: E11.65 Type 2 diabetes mellitus with hyperglycemia (principal) | CPT/HCPCS: 82947; 83036 ==